=== PATIENT | male | born 1950 | race Caucasian/White ===

== ENCOUNTER 2019-09-02 17:18 | Inpatient (IN) ==
[2019-09-02] MEDS ORDERED: *HR* Heparin 5,000 UNIT/ML VIAL IVP ONE (17:49)
[2019-09-02] MEDS ORDERED: Aspirin 81 MG TAB.CHEW PO ONE (17:49)
[2019-09-02] MEDS ORDERED: *HR* Heparin 5,000 UNIT/ML VIAL IVP PRN ×2 (17:49)
[2019-09-02] MEDS ORDERED: Nitroglycerin 0.4 MG TAB.SUBL SL PRN (17:49)
[2019-09-02] MEDS ORDERED: *HR* Ticagrelor 90 MG TABLET PO ONE (17:49)
[2019-09-02] MEDS ORDERED: 0.9 % Sodium Chloride 1,000 ML ONE ×2 (17:59→18:07)
[2019-09-02] MEDS ORDERED: Heparin 25,000 UNIT/250 ML D5W 25,000 UNIT/250 ML IV.SOLN IVC SCH (18:00)
[2019-09-02 18:03] LABS: Basophils % 0.4 %; Eosinophils # 0.2 K/mcL (0.0-0.6); Hematocrit 39.8 % (37.5-50.1); Hemoglobin 14.4 g/dL (12.9-16.9); Immature Granulocytes % 0.4 % (0-4); Lymphocytes # 2.7 K/mcL (0.6-4.6); Lymphocytes % 27.4 %; Mean Corpuscular HGB Conc 36.2 g/dL (31.6-35.5); Mean Corpuscular Hemoglobin 35.4 pg (28.0-33.3); Mean Corpuscular Volume 97.8 fL (83.0-100.0); Mean Platelet Volume 10.2 fL (9.4-12.4); Monocytes # 0.8 K/mcL (0.0-1.3); Monocytes % 8.4 %; Platelet Count 252 K/mcL (140-400); Red Blood Count 4.07 M/mcL (4.19-5.50); Red Cell Distribution Width 12.2 % (11.5-14.5); Segmented Neutrophils % 61.4 %; White Blood Count 9.8 K/mcL (4.3-11.1)
[2019-09-02] MEDS ORDERED: Heparin 1,000 UNITS/500 mL 500 ML ONE (18:07)
[2019-09-02] MEDS ORDERED: *HR* Midazolam HCl 2 MG/2 ML VIAL ONE ×2 (18:07→19:03)
[2019-09-02] MEDS ORDERED: *HR* Heparin 10,000 UNIT/10 ML VIAL ONE (18:07)
[2019-09-02] MEDS ORDERED: Nitroglycerin 1,000 MCG/10 ML VIAL IV ONE (18:07)
[2019-09-02] MEDS ORDERED: *HR* FentaNYL (PF) 100 MCG/2 ML VIAL ONE (18:07)
[2019-09-02] MEDS ORDERED: ISOVUE-370 200 ML INFUS..BTL ONE ×3 (18:07→19:05)
[2019-09-02 18:12] LABS: INR 0.9; Prothrombin Time 10.5 Seconds (9.4-12.1)
[2019-09-02] MEDS ORDERED: Verapamil 5 MG/2 ML VIAL ONE (18:12)
[2019-09-02 18:15] LABS: Activated Partial Thrombo Time 37.9 Seconds (26.0-36.0)
[2019-09-02 18:19] LABS: BUN/Creatinine Ratio 15 (6-26); Blood Urea Nitrogen 14 mg/dL (8-23); Calcium 9.1 mg/dL (8.6-10.3); Carbon Dioxide 25 mEq/L (23-29); Chloride 103 mEq/L (98-107); Glucose 85 mg/dL (70-105); Osmolality,Calculated 282 (280-300); Potassium 3.8 mEq/L (3.5-5.1); Sodium 136 mEq/L (136-145); eGFR For African Americans > 60 (> 60); eGFR For Non-African Americans > 60 (> 60)
[2019-09-02 18:27] LABS: Troponin I 2.74 ng/mL (< 0.04)
[2019-09-02] MEDS ORDERED: Ondansetron 4 MG/2 ML VIAL IVP PRN (18:31)
[2019-09-02 18:47] LABS: Magnesium 2.1 mg/dL (1.6-2.6)
[2019-09-02] MEDS ORDERED: Tirofiban 12.5 MG/250ML 12.5 MG/250 ML BAG ONE (19:00)
[2019-09-02] MEDS: *HR* OxyCODONE Immed Rel 5 MG TABLET PO PRN (19:54)
[2019-09-02] MEDS ORDERED: COMBIVENT RESPIMAT IH PRN (21:02)
[2019-09-02] MEDS ORDERED: Baclofen 10 MG TABLET PO PRN (21:02)
[2019-09-02] MEDS ORDERED: Benzonatate 100 MG CAPSULE PO PRN (21:02)
[2019-09-02] MEDS: Budesonide/Formoterol 160/4.5 1 PUFF INH IH SCH (21:42)
[2019-09-02] MEDS: ALPRAZolam 0.5 MG TABLET PO SCH (21:56)
[2019-09-02] MEDS: *HR* Ticagrelor 90 MG TABLET PO SCH (21:57)
[2019-09-03] MEDS ORDERED: *HR* Enoxaparin 40 MG/0.4 ML SYRINGE SQ SCH (06:00)
[2019-09-03 06:01] LABS: Basophils % 0.4 %; Eosinophils # 0.2 K/mcL (0.0-0.6); Eosinophils % 1.7 %; Hematocrit 37.8 % (37.5-50.1); Immature Granulocytes % 0.5 % (0-4); Lymphocytes # 2.2 K/mcL (0.6-4.6); Lymphocytes % 19.4 %; Mean Corpuscular HGB Conc 34.4 g/dL (31.6-35.5); Mean Corpuscular Hemoglobin 34.9 pg (28.0-33.3); Mean Corpuscular Volume 101.3 fL (83.0-100.0); Mean Platelet Volume 10.2 fL (9.4-12.4); Monocytes % 8.6 %; Neutrophils # 7.7 K/mcL (1.6-8.9); Platelet Count 230 K/mcL (140-400); Red Blood Count 3.73 M/mcL (4.19-5.50); Red Cell Distribution Width 12.3 % (11.5-14.5); Segmented Neutrophils % 69.4 %; White Blood Count 11.1 K/mcL (4.3-11.1)
[2019-09-03 06:29] LABS: BUN/Creatinine Ratio 15 (6-26); Blood Urea Nitrogen 14 mg/dL (8-23); Calcium 8.7 mg/dL (8.6-10.3); Carbon Dioxide 24 mEq/L (23-29); Chloride 106 mEq/L (98-107); Glucose 91 mg/dL (70-105); Osmolality,Calculated 282 (280-300); Potassium 4.3 mEq/L (3.5-5.1); Sodium 136 mEq/L (136-145); eGFR For African Americans > 60 (> 60); eGFR For Non-African Americans > 60 (> 60)
[2019-09-03] MEDS: Budesonide/Formoterol 160/4.5 1 PUFF INH IH SCH (07:29)
[2019-09-03] MEDS: *HR* OxyCODONE Immed Rel 5 MG TABLET PO PRN ×2 (08:20→14:19)
[2019-09-03] MEDS: *HR* Ticagrelor 90 MG TABLET PO SCH (08:20)
[2019-09-03] MEDS: ALPRAZolam 0.5 MG TABLET PO SCH ×2 (08:20→14:19)
[2019-09-03] MEDS ORDERED: Aspirin 81 MG TAB.CHEW PO SCH (09:00)
[2019-09-03] MEDS ORDERED: Cholecalciferol (D-3) 1,000 UNIT (25MCG) TABLET PO SCH (09:00)
[2019-09-03 12:27] VITALS: BP 125/91
[2019-09-03] MEDS ORDERED: Perflutren Lipid Microsphere 1.3 ML in 0.9 % Sodium Chloride 8.7 ML IVP ONE (13:49)
[2019-09-04] MEDS ORDERED: Metoprolol XL (24 HR) Succ 50 MG TAB.ER.24H PO SCH (09:00)
== END 2019-09-03 15:20 | disposition left against medical advice (07) | DRG 247 ==
LOC: EMEROOARM 17:18 → CDU 18:22
PROVIDERS: ADMIT Internal Medicine Cardiovascular Disease; ATTEND Internal Medicine Cardiovascular Disease

== ENCOUNTER 2022-02-24 11:59 | Observation (INO) ==
[2022-02-24 15:43] LABS: Basophils % 0.2 %; Eosinophils # 0.1 K/mcL (0.0-0.6); Eosinophils % 0.4 %; Hematocrit 37.9 % (37.5-50.1); Immature Granulocytes % 0.5 % (0-4); Lymphocytes # 2.4 K/mcL (0.6-4.6); Lymphocytes % 13.3 %; Mean Corpuscular HGB Conc 34.3 g/dL (31.6-35.5); Mean Corpuscular Hemoglobin 34.4 pg (28.0-33.3); Mean Corpuscular Volume 100.3 fL (83.0-100.0); Mean Platelet Volume 10.3 fL (9.4-12.4); Monocytes # 1.6 K/mcL (0.0-1.3); Neutrophils # 13.7 K/mcL (1.6-8.9); Platelet Count 230 K/mcL (140-400); Red Blood Count 3.78 M/mcL (4.19-5.50); Red Cell Distribution Width 12.4 % (11.5-14.5); Segmented Neutrophils % 76.6 %; White Blood Count 17.8 K/mcL (4.3-11.1)
[2022-02-24 16:01] LABS: Alanine Aminotransferase 9 Units/L (7-52); Albumin 3.5 g/dL (3.5-5.7); Albumin/Globulin Ratio 1.4 (1.1-2.2); Alkaline Phosphatase 68 Units/L (34-104); Amylase 27 Units/L (29-103); Aspartate Amino Transferase 13 Units/L (13-39); BUN/Creatinine Ratio 15 (6-26); Bilirubin,Direct 0.2 mg/dL (0.0-0.2); Bilirubin,Indirect 0.7 mg/dL (0.0-1.0); Bilirubin,Total 0.9 mg/dL (0.3-1.0); Blood Urea Nitrogen 17 mg/dL (8-23); Calcium 8.8 mg/dL (8.6-10.3); Carbon Dioxide 26 mEq/L (23-29); Chloride 99 mEq/L (98-107); Globulin 2.5 g/dL (2.4-3.5); Glucose 102 mg/dL (70-105); Lipase 11 Units/L (11-82); Osmolality,Calculated 274 (280-300); Potassium 3.9 mEq/L (3.5-5.1); Sodium 131 mEq/L (136-145); Troponin I < 0.03 ng/mL (< 0.04); eGFR For African Americans > 60 (> 60); eGFR For Non-African Americans > 60 (> 60)
[2022-02-24] MEDS ORDERED: Azithromycin 500 MG in 0.9 % Sodium Chloride 250 ML IVPB ONE (16:45)
[2022-02-24] MEDS ORDERED: cefTRIAXone 1,000 MG in 0.9 % Sodium Chloride 10 ML IVP ONE (16:45)
[2022-02-24 16:53] LABS: Influenza A PCR Negative (Negative); Influenza B PCR Negative (Negative); Resp. Syncytial Virus PCR Negative (Negative)
[2022-02-24 16:55] LABS: SARS-CoV-2 by PCR (In House) Negative (Negative)
[2022-02-24] MEDS ORDERED: Ipratropium/Albuterol Neb 3 ML IH ONE (17:23)
[2022-02-24] MEDS ORDERED: Albuterol 2.5 MG/3 ML NEBULIZER IH ONE (17:23)
[2022-02-24] MEDS ORDERED: methylPREDNISolone 125 MG/2 ML VIAL IVP ONE (17:23)
[2022-02-24] MEDS ORDERED: Naloxone 0.4 MG/ML INJ IVP PRN (17:27)
[2022-02-24] MEDS ORDERED: Ondansetron 4 MG/2 ML VIAL IVP PRN (17:27)
[2022-02-24] MEDS ORDERED: Acetaminophen 325 MG TABLET PO PRN (17:27)
[2022-02-24] MEDS ORDERED: ALPRAZolam 0.5 MG TABLET PO PRN (17:43)
[2022-02-24] MEDS ORDERED: Ipratropium/Albuterol Neb 3 ML IH PRN (17:43)
[2022-02-24] MEDS: Nicotine 21 MG PATCH.TD24 TD SCH (19:41)
[2022-02-24] MEDS ORDERED: Nitroglycerin 0.4 MG TAB.SUBL SL PRN (19:42)
[2022-02-24] MEDS: *HR* Heparin 5,000 UNIT/ML VIAL SQ SCH (19:43)
[2022-02-24 20:01] LABS: Bilirubin,Urine Negative (Negative); Blood,Urine Negative (Negative); Clarity,Urine Clear (Clear); Color,Urine Colorless (Yellow); Glucose,Urine (UA) Normal (Normal); Ketones,Urine Negative (Negative); Leukocyte Esterase,Urine Negative (Negative); Nitrite,Urine Negative (Negative); Protein,Urine Negative (Neg-Trace); Specific Gravity,Urine 1.007 (1.010-1.025); Urobilinogen,Urine Normal (Normal)
[2022-02-24] MEDS ORDERED: Gabapentin 300 MG CAPSULE PO SCH (21:00)
[2022-02-24] MEDS: lisinopriL 5 MG TABLET PO SCH (21:28)
[2022-02-24] MEDS: Metoprolol XL (24 HR) Succ 50 MG TAB.ER.24H PO SCH (21:28)
[2022-02-25 03:57] VITALS: BP 105/76; TEMP 97.6
[2022-02-25] MEDS: *HR* Heparin 5,000 UNIT/ML VIAL SQ SCH (05:05)
[2022-02-25 05:44] LABS: Basophils % 0.1 %; Hematocrit 37.6 % (37.5-50.1); Hemoglobin 13.4 g/dL (12.9-16.9); Immature Granulocytes % 0.6 % (0-4); Lymphocytes # 0.9 K/mcL (0.6-4.6); Lymphocytes % 8.6 %; Mean Corpuscular HGB Conc 35.6 g/dL (31.6-35.5); Mean Corpuscular Hemoglobin 35.2 pg (28.0-33.3); Mean Corpuscular Volume 98.7 fL (83.0-100.0); Mean Platelet Volume 10.5 fL (9.4-12.4); Monocytes # 0.2 K/mcL (0.0-1.3); Neutrophils # 8.7 K/mcL (1.6-8.9); Platelet Count 250 K/mcL (140-400); Red Blood Count 3.81 M/mcL (4.19-5.50); Segmented Neutrophils % 88.7 %; White Blood Count 9.9 K/mcL (4.3-11.1)
[2022-02-25 05:48] LABS: INR 1.2; Prothrombin Time 12.9 Seconds (9.4-12.1)
[2022-02-25 05:51] LABS: Activated Partial Thrombo Time 33.5 Seconds (26.0-36.0)
[2022-02-25 06:07] LABS: BUN/Creatinine Ratio 15 (6-26); Blood Urea Nitrogen 16 mg/dL (8-23); Calcium 8.9 mg/dL (8.6-10.3); Carbon Dioxide 23 mEq/L (23-29); Chloride 102 mEq/L (98-107); Glucose 150 mg/dL (70-105); Osmolality,Calculated 278 (280-300); Potassium 4.4 mEq/L (3.5-5.1); Sodium 132 mEq/L (136-145); eGFR For African Americans > 60 (> 60); eGFR For Non-African Americans > 60 (> 60)
[2022-02-25 07:24] VITALS: PULSE 65; O2SAT 98
[2022-02-25] MEDS ORDERED: Benzonatate 100 MG CAPSULE PO PRN (07:38)
[2022-02-25] MEDS ORDERED: cefTRIAXone 1,000 MG in 0.9 % Sodium Chloride 10 ML IVP SCH (09:00)
[2022-02-25] MEDS ORDERED: Magnesium Oxide 400 MG TABLET PO SCH (09:00)
[2022-02-25] MEDS ORDERED: Aspirin Enteric Coated 81 MG Tablet PO SCH (09:00)
[2022-02-25] MEDS ORDERED: GuaiFENesin Liq 200 MG/10 ML UDC PO SCH (09:00)
[2022-02-25] MEDS ORDERED: Azithromycin 500 MG in 0.9 % Sodium Chloride 250 ML IVPB SCH (09:00)
[2022-02-25] MEDS ORDERED: Pyridoxine (B-6) 50 MG TABLET PO SCH (09:00)
[2022-02-25] MEDS: lisinopriL 5 MG TABLET PO SCH (09:35)
[2022-02-25] MEDS: Nicotine 21 MG PATCH.TD24 TD SCH (09:36)
[2022-02-25] MEDS: Metoprolol XL (24 HR) Succ 50 MG TAB.ER.24H PO SCH (09:36)
[2022-02-25] MEDS ORDERED: Tiotropium 10 INH DOSE IH SCH (10:00)
[2022-02-25] MEDS ORDERED: Budesonide/Formoterol 160/4.5 1 PUFF INH IH SCH (10:00)
== END 2022-02-25 11:05 | disposition home or self-care (01) ==
LOC: EMEROOARM 11:59 → 3NENU 11:59 → SUATTDRO 17:35 → 3NENU 18:28
PROVIDERS: ADMIT Pharmacist; ATTEND Internal Medicine